=== PATIENT | male | born 1950 | race American Indian/Alaskan Native ===

== ENCOUNTER 2018-05-24 06:30 | Day surgery (SDC) | payer MEDICARE, BC ==
--- NOTE | 2018-05-24 08:44 | CP.SDSHP ---
Same Day Surgery H & P - History Proposed Procedure: colonoscopy Pre-Op Diagnosis: h/o colon polyps - Previous Medical/Surgical History Cardiac: Hypertension, Other (hyperlipidemia, ) Endocrine/Metabolic: Diabetes, Obesity, Renal Disease Misc: Other (colon polyps 2002, 2011) Previous Surgical History: Sebaceous cyst - Allergies Allergies: Allergies HAYFEVER Allergy (Uncoded 05/24/18 07:09) CONGESTION - Physical Exam Vital Signs: Vital Signs 05/24/18 06:50 Temperature 97.1 F L Pulse Rate 78 Respiratory 19 Rate Blood Pressure 152/76 H O2 Sat by Pulse 100 Oximetry Mental Status: Alert & Oriented x3 Neuro: WNL Heart: WNL Lungs: WNL GI: WNL - Impression Impression: h/o colon polyps Pt. Evaluated Today:Candidate for Anesthesia & Procedure: Yes - Date & Time Date: 05/24/18 Time: 08:44 Short Stay Discharge - Short Stay Discharge Admitting Diagnosis/Reason for Visit: CHANGE IN BOWEL HABIT / MORBID OBESITY / POLYPS Disposition: HOME/ ROUTINE
[2018-05-24] MEDS ORDERED: Lactated Ringer's 500 ML IV ONE (08:45)
[2018-05-24] MEDS ORDERED: Propofol 10 mg/ml Inj (20 ML) ONE (08:45)
[2018-05-24] MEDS ORDERED: Lidocaine Hydrochloride 5 ML INJ ONE (08:45)
[2018-05-24 10:31] VITALS: TEMP 98
[2018-05-24 10:38] VITALS: BP 135/75; PULSE 78; RESP 20; O2SAT 100
== END 2018-05-24 10:30 | disposition home or self-care (01) ==
LOC: C.ENDO 06:30
PROVIDERS: ATTEND Internal Medicine Gastroenterology
DX: Z12.11 Encounter for screening for malignant neoplasm of colon (principal); D12.4 Benign neoplasm of descending colon; K63.89 Other specified diseases of intestine; K63.5 Polyp of colon; K57.30 Diverticulosis of large intestine without perforation or abscess without bleeding; K64.8 Other hemorrhoids; R19.4 Change in bowel habit; Z86.010 Personal history of colon polyps; E78.5 Hyperlipidemia, unspecified; I10 Essential (primary) hypertension; E11.9 Type 2 diabetes mellitus without complications; E66.9 Obesity, unspecified
CPT/HCPCS: 45380; 82948; 88305; J2704; J3010; J7040; J7120